=== PATIENT | male | born 1945 | race Caucasian/White ===

== ENCOUNTER 2018-01-10 10:50 | Emergency (ER) | payer OTHER ==
[2018-01-10 11:19] VITALS: RESP 18
[2018-01-10] MEDS ORDERED: Tdap Vaccine 0.5 ml Vial (10-64 yrs) IM ONE ×2 (11:33→12:01)
[2018-01-10] MEDS ORDERED: Lidocaine 2% Inj (20ml) ONE (11:37)
--- NOTE | 2018-01-10 11:58 | C.PDOC ---
History Of Present Illness 72yo male, presents to ER for evaluation of left 4th digit laceration after a crush injury this morning. Patient states he sustained the laceration after a heavy metal bar fell on his hand. He denies any weakness, numbness, tingling. No other complaints. Time Seen by Provider: 01/10/18 11:28 Chief Complaint (Nursing): Abnormal Skin Integrity History Per: Patient History/Exam Limitations: no limitations Onset/Duration Of Symptoms: Hrs Current Symptoms Are (Timing): Still Present Location Of Injury: Left: Hand (4th digit) Quality Of Symptoms: Painful Additional History Per: Patient Past Medical History Reviewed: Historical Data, Nursing Documentation, Vital Signs Vital Signs: Last Vital Signs Temp 98.1 F 01/10/18 11:16 Pulse 60 01/10/18 11:16 Resp 18 01/10/18 11:16 BP 162/92 H 01/10/18 11:16 Pulse Ox 98 01/10/18 12:59 - Medical History PMH: Arthritis Surgical History: No Surg Hx - [facility] Procedures CATARAC PHACOEMULS/ASPIR (08/13/13) INSERT LENS AT CATAR EXT (08/13/13) Family History: States: Unknown Family Hx - Social History Hx Alcohol Use: Yes Hx Substance Use: No - Immunization History Hx Tetanus Toxoid Vaccination: No Hx Influenza Vaccination: No Hx Pneumococcal Vaccination: No Review Of Systems Except As Marked, All Systems Reviewed And Found Negative. Musculoskeletal: Positive for: Hand Pain (left 4th digit laceration) Neurological: Negative for: Weakness, Numbness Physical Exam - Physical Exam Appears: Non-toxic Neurological/Psych: Oriented x3, Normal Speech, Normal Cognition ED Course And Treatment O2 Sat by Pulse Oximetry: 98 (RA) Pulse Ox Interpretation: Normal Procedure: Wound Repair - Time Performed Time Performed: 12:35 - Time Out Time Out: Side verified, Site verified, Patient ID confirmed - Consent Obtained Consent obtained: Verbal - Performed by Performed by: Attending Physician - Indications Indication(s):: Laceration - Location Location:: Left Finger:: Ring Depth:: Bone - Anesthetic Technique Anesthetic Technique: Regional block Local/Regional Anesthetic:: Lidocaine 2% - Complexity Complexity:: Simple (one layer) - Wound repair method Sutures:: # (10), Size (4:0), Type (ethilon), Technique (simple interrupted) - Patient tolerated procedure Patient Tolerated Procedure:: Well Medical Decision Making Medical Decision Making: Impression: Crush injury, finger laceration Plan: -- TDAP booster -- Ancef 1gm IV -- Morphine 4mg IVP -- XR Left hand 4th digit Time: [address] Lucas, hand surgeon acquisition advisor who advises patient can follow up with him as outpatient in his office. He advised to perform a simple repair and close the wound, place the finger in a splint. Disposition Counseled Patient/Family Regarding: Studies Performed, Diagnosis, Need For Followup, Rx Given - Disposition Referrals: Samy Ricks MD [Staff Provider] - Disposition: HOME/ ROUTINE Disposition Time: 13:10 Condition: STABLE Prescriptions: Cephalexin [Keflex] 500 mg PO QID #40 capsule Instructions: Wound Care (DC), Laceration Repair With Stitches (DC) Forms: [employer] (Korean) - POA Present On Arrival: None - Clinical Impression Clinical Impression: Avulsion of finger tip, Laceration - Scribe Statement The provider has reviewed the documentation as recorded by the Scribe (Mayra Velazquez) Provider Attestation: All medical record entries made by the Scribe were at my direction and personally dictated by me. I have reviewed the chart and agree that the record accurately reflects my personal performance of the history, physical exam, medical decision making, and the department course for this patient. I have also personally directed, reviewed, and agree with the discharge instructions and disposition.
[2018-01-10] MEDS ORDERED: ceFAZolin 1 gm FROZEN Premix 1 GM/50 ML ML IVPB ONE (12:01)
[2018-01-10] MEDS ORDERED: Morphine 4 MG/ML VIAL ONE (12:01)
--- NOTE | 2018-01-10 12:29 | RAD ---
PROCEDURE: Left ring finger radiographs. HISTORY: crush injury COMPARISON: None available. TECHNIQUE: AP radiograph of the left hand, as well as spot oblique and lateral images of left ring finger were obtained. FINDINGS: LEFT RING FINGER: Left fourth digit demonstrates displaced comminuted fracture at the distal phalanx. Fracture line extends proximally to the intra-articular surface. Remainder of the left hand (as seen on the AP view) is grossly unremarkable. JOINTS: Unremarkable. SOFT TISSUES: Soft tissue swelling and laceration of the distal 4th phalanx. OTHER FINDINGS: None. IMPRESSION: Displaced comminuted fracture of the 4th distal phalanx with associated soft tissue swelling and laceration. Fracture line extends proximally to the intra-articular surface.
[2018-01-10 13:24] VITALS: BP 139/83; PULSE 58; TEMP 98; O2SAT 96
== END 2018-01-10 13:27 | disposition home or self-care (01) ==
LOC: C.ER 10:50
DX: S61.215A Laceration without foreign body of left ring finger without damage to nail, initial encounter (principal); W23.0XXA Caught, crushed, jammed, or pinched between moving objects, initial encounter; Z23 Encounter for immunization
CPT/HCPCS: 12002; 73140; 90471; 90715; 96365; 96375; 99284; J0690; J2270

== ENCOUNTER 2018-01-13 13:50 | Emergency (ER) | payer OTHER ==
[2018-01-13 13:57] VITALS: BMI 25.2
[2018-01-13 13:58] VITALS: BP 162/91; PULSE 82; RESP 18; TEMP 98.1; O2SAT 98
--- NOTE | 2018-01-13 14:24 | C.PDOC ---
History Of Present Illness Patient is a 72 y/o male who presents to the ED for a wound check. Patient reports to have sustained a finger laceration 3 days ago during a crush injury. Admits to mild pain with intermittent bleeding; denies any fever, numbness, or weakness. Patient has no other physical complaints at this time. (Socorro Pate) History Per: Patient History/Exam Limitations: no limitations Onset/Duration Of Symptoms: Days (3 days) Current Symptoms Are (Timing): Still Present Recent travel outside of the [place]: No Time Seen by Provider: 01/13/18 14:05 Chief Complaint (Nursing): Finger,Hand,&Wrist Past Medical History Reviewed: Historical Data, Nursing Documentation, Vital Signs - Medical History PMH: Arthritis Other Surgeries: CATARAC PHACOEMULS/ASPIR (08/13/13). INSERT LENS AT CATAR EXT (08/13/13) Family History: States: Unknown Family Hx - Social History Hx Tobacco Use: Yes (light smoker) Hx Alcohol Use: Yes Hx Substance Use: No - Immunization History Hx Tetanus Toxoid Vaccination: No Hx Influenza Vaccination: No Hx Pneumococcal Vaccination: No Vital Signs: Last Vital Signs Temp 98.1 F 01/13/18 13:57 Pulse 82 01/13/18 13:57 Resp 18 01/13/18 13:57 BP 162/91 H 01/13/18 13:57 Pulse Ox 98 01/13/18 14:42 - [facility] Procedures CATARAC PHACOEMULS/ASPIR (08/13/13) INSERT LENS AT CATAR EXT (08/13/13) Review Of Systems Constitutional: Negative for: Fever Skin: Positive for: Other (laceration to left fourth finger) Neurological: Negative for: Weakness, Numbness Physical Exam - Physical Exam Appears: Well, Non-toxic, No Acute Distress Skin: Other (positive left fourth finger wound with sutures intact; scant dry blood with no active bleeding) - Physical Exam Additional Physical Exam Comments: Dressing removed and wound cleansed with sterile saline and iodoform. Sterile dressing placed by CHAZ Quintanilla. (Socorro Pate) ED Course And Treatment O2 Sat by Pulse Oximetry: 98 Medical Decision Making Medical Decision Making: Patient instructed to follow up with hand surgeon without fail. Wound does not appear to be infected at this time. Patient is stable for discharge and comfortable with going home. (Socorro Pate) Disposition - Disposition Disposition Time: 14:22 - Disposition Referrals: [facility] [Outside] Disposition: HOME/ ROUTINE Condition: GOOD Additional Instructions: FOLLOW UP WITH THE HAND SURGEON WITHOUT FAIL. TAKE ANTIBIOTICS UNTIL COMPLETE. RETURN IF WORSENED. Instructions: Wound Care (DC) Forms: [employer] (Danish) Print Language: UKRAINIAN - Clinical Impression Clinical Impression: Visit for wound check - Scribe Statement The provider has reviewed the documentation as recorded by the Scribe - Scribe Statement Stacey Clarke All medical record entries made by the Scribe were at my direction and personally dictated by me. I have reviewed the chart and agree that the record accurately reflects my personal performance of the history, physical exam, medical decision making, and the department course for this patient. I have also personally directed, reviewed, and agree with the discharge instructions and disposition. (Socorro Pate)
== END 2018-01-13 14:29 | disposition home or self-care (01) ==
LOC: C.ER 13:50
DX: Z51.89 Encounter for other specified aftercare (principal); F17.210 Nicotine dependence, cigarettes, uncomplicated

== ENCOUNTER 2018-02-10 15:54 | Emergency (ER) | payer OTHER ==
[2018-02-10 15:54] VITALS: BMI 25.2
[2018-02-10 16:29] VITALS: O2SAT 97
--- NOTE | 2018-02-10 18:20 | C.PDOC ---
History Of Present Illness Patient is a 72 y/o male who presents to the ED with a complaint of right shoulder pain for the last 4 days. Patient denies any injury. No other physical complaints at this time. Time Seen by Provider: 02/10/18 17:01 Chief Complaint (Nursing): Upper Extremity Problem/Injury History Per: Patient History/Exam Limitations: no limitations Onset/Duration Of Symptoms: Days (4) Current Symptoms Are (Timing): Still Present Recent travel outside of the [place]: No Past Medical History Reviewed: Historical Data, Nursing Documentation, Vital Signs Vital Signs: Last Vital Signs Temp 98 F 02/10/18 18:32 Pulse 76 02/10/18 18:32 Resp 18 02/10/18 18:32 BP 132/80 02/10/18 18:32 Pulse Ox 97 02/10/18 20:38 - Medical History PMH: Arthritis Other Surgeries: cataract surgery - [facility] Procedures CATARAC PHACOEMULS/ASPIR (08/13/13) INSERT LENS AT CATAR EXT (08/13/13) Family History: States: Unknown Family Hx - Social History Hx Tobacco Use: Yes (light smoker) Hx Alcohol Use: Yes Hx Substance Use: No - Immunization History Hx Tetanus Toxoid Vaccination: No Hx Influenza Vaccination: No Hx Pneumococcal Vaccination: No Review Of Systems Musculoskeletal: Positive for: Shoulder Pain (right shoulder pain) Physical Exam - Physical Exam Appears: Well, Non-toxic, No Acute Distress Skin: Normal Color, Warm, Dry Head: Atraumatic, Normacephalic Eye(s): bilateral: Normal Inspection Oral Mucosa: Moist Neck: Normal ROM, No Midline Cervical Tenderness, No Paracervical Tenderness Chest: No Deformity, No Tenderness Cardiovascular: Rhythm Regular Respiratory: Normal Breath Sounds Extremity: Normal ROM (active ROM of right shoulder), Tenderness (diffuse tenderness of right shoulder), No Deformity, No Swelling Neurological/Psych: Oriented x3, Normal Speech, Normal Cognition Gait: Steady ED Course And Treatment O2 Sat by Pulse Oximetry: 97 Progress Note: Toradol administered. XR right shoulder ordered. Patient is resting comfortably and stable for discharge. Advised to follow up with PMD if symptoms persist. Disposition - Disposition Referrals: Charli Huertas MD [Staff Provider] - Matthew Hopkins III, MD [Staff Provider] - Disposition: HOME/ ROUTINE Disposition Time: 18:18 Condition: STABLE Additional Instructions: Follow up with PMD and Orthopedist within 1-2 days. Return to ED if feel worse. Prescriptions: Naproxen [Naprosyn] 1 tab PO BID PRN #25 tab PRN Reason: Pain Famotidine [Pepcid] 20 mg PO BID #20 tab Instructions: Calcific Tendonitis of the Shoulder (DC) Forms: [employer] (Faroese) Print Language: NEPALESE - Clinical Impression Clinical Impression: Shoulder pain - Scribe Statement The provider has reviewed the documentation as recorded by the Scribe Stacey Clarke All medical record entries made by the Scribe were at my direction and personally dictated by me. I have reviewed the chart and agree that the record accurately reflects my personal performance of the history, physical exam, medical decision making, and the department course for this patient. I have also personally directed, reviewed, and agree with the discharge instructions and disposition.
[2018-02-10 18:33] VITALS: BP 132/80; PULSE 76; RESP 18; TEMP 98
--- NOTE | 2018-02-11 08:36 | RAD ---
PROCEDURE: Radiographs of the Right Shoulder HISTORY: atraumatic pain COMPARISON: No prior. FINDINGS: BONES: No acute fracture or destructive bony lesion identified. JOINTS: The acromioclavicular and glenohumeral joints appear unremarkable. SOFT TISSUES: Ovoid calcifications are seen in the soft tissues in the planned at rotator cuff which may indicate calcific tendinosis. Clinically correlate further. OTHER FINDINGS: None. IMPRESSION: No acute fracture or dislocation. Consider potential calcific tendinosis as discussed above. MRI may be useful for further characterization.
== END 2018-02-10 18:33 | disposition home or self-care (01) ==
LOC: C.ER 15:54
DX: M25.511 Pain in right shoulder (principal)
CPT/HCPCS: 73030; 96372; 99284; J1885